=== PATIENT | female | born 1965 | race African-American/Black ===

== ENCOUNTER 2017-02-27 11:34 | Emergency (ER) | payer MEDICAID ==
[~2017-02-27] VITALS: Ht 167.6 cm; Wt 160.0 kg
[~2017-02-27 11:34] MED LIST: ASPI325T2; OMEP20CA10 PO
[2017-02-27] MEDS ORDERED: MORPHINE SULFATE 4 MG/ML CPJ (NOT FOR IM USE) IV STA (13:37)
[2017-02-27] MEDS ORDERED: ASPIRIN 81MG TABLET PO STA (13:37)
[2017-02-27] MEDS ORDERED: NITROGLYCERIN OINT 1GM/INCH UDPKT TD STA (13:37)
[2017-02-27 15:31] LABS: BASOPHILS % 1.1 % (0.0-2.0); EOSINOPHILS % 4.6 % (0.0-5.0); HEMATOCRIT. 35.5 % (36.0-48.0); HEMOGLOBIN. 11.1 g/dL (12.0-16.0); LYMPHOCYTES % 38.1 % (20.0-50.0); MEAN CORPUSCULAR HGB CONC 31.4 g/dL (31.0-37.0); MEAN CORPUSCULAR VOLUME 73.1 fL (81.0-99.0); MEAN PLATELET VOLUME 10.4 fl (7.4-10.4); MONOCYTES % 10.2 % (2.0-8.0); PLATELET 245 x1000/uL (130-400); RED BLOOD CELL COUNT 4.85 mill/uL (4.2-5.4); RED CELL DISTRIBUTION WIDTH 23.3 % (11.6-14.6); WHITE BLOOD COUNT 7.7 x1000/uL (4.5-11.0)
[2017-02-27 15:34] LABS: ADD RBC MORPHOLOGY YES; DIFFERENTIAL COMMENT 1
[2017-02-27 15:38] LABS: CHLORIDE 109 mEq/L (98-107); INDEX HEMOLYSI 1 (1-3); INDEX ICTERIC 1 (1-4); INDEX LIPEMIC 1 (1-3)
[2017-02-27 15:39] LABS: PARTIAL THROMBOPLASTIN TIME 25.3 sec (24.0-34.0); PROTHROMBIN TIME 10.5 sec
[2017-02-27 15:41] LABS: ALBUMIN 3.5 g/dL (3.4-5.0); ANION GAP 11; CALCIUM 8.9 mg/dL (8.5-10.1); CARBON DIOXIDE 26 mEq/L (21-32); LIPASE 124 IU/L (73-393); UREA NITROGEN BLOOD 10 mg/dL (7-21)
[2017-02-27 15:43] LABS: ALANINE AMINOTRANSFERASE 22 IU/L (13-61); eGFR > 60 mL/min (>60)
[2017-02-27 15:47] LABS: TROPONIN I < 0.02 ng/mL (0.00-0.04)
[2017-02-27 15:50] LABS: GIANT PLATELETS FEW; HYPOCHROMASIA 1+; PLATELET ESTIMATE NORMAL
[2017-02-27 15:51] LABS: ANISOCYTOSIS 1+
[2017-02-27 17:43] VITALS: BP 131/51
== END 2017-02-27 17:48 | disposition home or self-care (01) ==
LOC: ER 15:03
DX: R07.89 Other chest pain (principal); J44.9 Chronic obstructive pulmonary disease, unspecified; I10 Essential (primary) hypertension; Z79.82 Long term (current) use of aspirin; Z79.899 Other long term (current) drug therapy
CPT/HCPCS: 36415; 71010; 80053; 83690; 84484; 85025; 85610; 85730; 93005; 99285; J2270; Z7610

== ENCOUNTER 2017-05-16 06:47 | Emergency (ER) | payer MEDICAID ==
[~2017-05-16] VITALS: Ht 167.6 cm; Wt 150.0 kg
[~2017-05-16 06:47] MED LIST changes: +ASPI-986; -ASPI325T2
[2017-05-16] MEDS ORDERED: ASPIRIN 81MG TABLET PO STA (08:07)
[2017-05-16] MEDS ORDERED: NITROGLYCERIN 0.4MG TABLET SL SL PRN (08:15)
[2017-05-16 08:39] LABS: GLUCOSE URINE NEGATIVE (NEGATIVE); KETONES URINE NEGATIVE (NEGATIVE); LEUKOCYTE ESTERASE URINE 1+ (NEGATIVE); NITRITE URINE NEGATIVE (NEGATIVE); OCCULT BLOOD URINE NEGATIVE (NEGATIVE); PROTEIN URINE NEGATIVE (NEGATIVE); SPECIFIC GRAVITY URINE 1.019 (1.005-1.030); UROBILINOGEN URINE 0.2 E.U./dL (0.2-1.0)
[2017-05-16 08:51] LABS: CLARITY URINE CLOUDY (CLEAR); COLOR URINE YELLOW (YELLOW)
[2017-05-16 08:55] LABS: CARBON DIOXIDE 27 mEq/L (21-32); CHLORIDE 109 mEq/L (98-107); PARTIAL THROMBOPLASTIN TIME 27.3 sec (24.0-34.0); PROTHROMBIN TIME 10.6 sec
[2017-05-16 09:02] LABS: TROPONIN I < 0.02 ng/mL (0.00-0.04)
[2017-05-16 09:05] LABS: EOSINOPHILS % 5.4 % (0.0-5.0); HEMATOCRIT. 32.2 % (36.0-48.0); MEAN CORPUSCULAR HEMOGLOBIN 21.9 pg (28.0-32.0); MEAN CORPUSCULAR VOLUME 70.5 fL (81.0-99.0); MEAN PLATELET VOLUME 10.4 fl (7.4-10.4); MONOCYTES % 9.9 % (2.0-8.0); NEUTROPHILS % 47.7 % (40.0-76.0); PLATELET 244 x1000/uL (130-400); RED BLOOD CELL COUNT 4.57 mill/uL (4.2-5.4); RED CELL DISTRIBUTION WIDTH 18.5 % (11.6-14.6)
[2017-05-16 11:59] VITALS: BP 131/77
== END 2017-05-16 12:16 | disposition home or self-care (01) ==
LOC: ER 07:51
DX: K21.9 Gastro-esophageal reflux disease without esophagitis (principal)
CPT/HCPCS: 36415; 71010; 80053; 81001; 83690; 84484; 85025; 85610; 85730; 93005; 99285

== ENCOUNTER 2017-07-22 12:57 | Inpatient (IN) | payer MEDICAID ==
[~2017-07-22] VITALS: Ht 170.2 cm; Wt 136.1 kg
[~2017-07-22 12:57] MED LIST changes: -ASPI-986; +ASPI-986 PO
[2017-07-22 14:18] LABS: BASOPHILS % 0.6 % (0.0-2.0); EOSINOPHILS % 4.6 % (0.0-5.0); HEMATOCRIT. 30.5 % (36.0-48.0); HEMOGLOBIN. 9.5 g/dL (12.0-16.0); LYMPHOCYTES % 33.4 % (20.0-50.0); MEAN CORPUSCULAR HEMOGLOBIN 20.6 pg (28.0-32.0); MEAN CORPUSCULAR VOLUME 66.2 fL (81.0-99.0); MEAN PLATELET VOLUME 9.4 fl (7.4-10.4); MONOCYTES % 10.3 % (2.0-8.0); NEUTROPHILS % 51.1 % (40.0-76.0); PLATELET 261 x1000/uL (130-400); RED BLOOD CELL COUNT 4.61 mill/uL (4.2-5.4); RED CELL DISTRIBUTION WIDTH 20.3 % (11.6-14.6)
[2017-07-22 14:26] LABS: PROTHROMBIN TIME 10.7 sec (9.4-11.6)
[2017-07-22 14:32] LABS: CARBON DIOXIDE 27 mEq/L (21-32); CHLORIDE 108 mEq/L (98-107); ETHANOL BLOOD < 10 mg/dL
[2017-07-22 14:35] LABS: TROPONIN I < 0.02 ng/mL (0.00-0.04)
[2017-07-22 14:45] LABS: PLATELET ESTIMATE NORMAL
[2017-07-22 15:18] LABS: *AMPHETAMINES SCREEN URINE NEGATIVE (NEGATIVE); *BARBITURATES SCREEN URINE NEGATIVE (NEGATIVE); *BENZODIAZEPINES SCREEN URINE NEGATIVE (NEGATIVE); *COCAINE SCREEN URINE NEGATIVE (NEGATIVE); CANNABINOID URINE SCREEN NEGATIVE (NEGATIVE); METHADONE URINE SCREEN NEGATIVE (NEGATIVE); OPIATES URINE SCREEN NEGATIVE (NEGATIVE); PHENCYCLIDINE URINE SCREEN NEGATIVE (NEGATIVE)
[2017-07-22] MEDS ORDERED: IPRATROPIUM/ALBUTEROL 0.5-3(2.5)MG/3ML NEB INH PRN (17:15)
[2017-07-22] MEDS ORDERED: ONDANSETRON HCL 4MG/2ML VIAL IV PRN (17:15)
[2017-07-22] MEDS ORDERED: CLONIDINE 0.1MG TABLET PO PRN (17:15)
[2017-07-22] MEDS ORDERED: ACETAMINOPHEN 325MG TABLET PO PRN (17:15)
[2017-07-22] MEDS ORDERED: DOCUSATE SODIUM 100MG CAPSULE PO PRN (17:15)
[2017-07-22] MEDS ORDERED: MAGNESIUM/ALUMINUM HYDROXIDE/SIMETHICONE 30ML UDC PO PRN (17:15)
[2017-07-22 18:09] LABS: CHLORIDE 108 mEq/L (98-107)
[2017-07-22 18:11] LABS: CARBON DIOXIDE 25 mEq/L (21-32)
[2017-07-22 21:20] VITALS: BP 151/41
[2017-07-22] MEDS: HYDROCODONE/ACETAMINOPHEN 5/325MG TABLET PO PRN (23:06)
[2017-07-23] VITALS: BP 154/82
[2017-07-23 00:04] LABS: CREATINE KINASE 306 IU/L (26-192); CREATINE KINASE MB FRACTION 1.7 ng/mL (0.5-3.6)
[2017-07-23 00:14] LABS: TROPONIN I < 0.02 ng/mL (0.00-0.04)
[2017-07-23] MEDS ORDERED: FAMO40TA7 PO (00:25)
[2017-07-23] MEDS ORDERED: FERR325T6 PO (00:25)
[2017-07-23 04:00] VITALS: BP 155/77
[2017-07-23] MEDS: HYDROCODONE/ACETAMINOPHEN 5/325MG TABLET PO PRN ×2 (06:26→16:52)
[2017-07-23 08:00] VITALS: BP 139/82
[2017-07-23] MEDS: ASPIRIN 81MG EC TABLET PO SCH (09:12)
[2017-07-23 10:43] LABS: CREATINE KINASE 260 IU/L (26-192); CREATINE KINASE MB FRACTION 1.5 ng/mL (0.5-3.6)
[2017-07-23 10:49] LABS: TROPONIN I < 0.01 ng/mL (0.00-0.04)
[2017-07-23 12:00] VITALS: BP 153/70
[2017-07-23 16:00] VITALS: BP 150/71
[2017-07-23 16:12] LABS: CLARITY URINE TURBID (CLEAR); COLOR URINE YELLOW (YELLOW); GLUCOSE URINE NEGATIVE (NEGATIVE); KETONES URINE NEGATIVE (NEGATIVE); LEUKOCYTE ESTERASE URINE NEGATIVE (NEGATIVE); NITRITE URINE POSITIVE (NEGATIVE); OCCULT BLOOD URINE NEGATIVE (NEGATIVE); PROTEIN URINE NEGATIVE (NEGATIVE); SPECIFIC GRAVITY URINE 1.021 (1.005-1.030); UROBILINOGEN URINE 0.2 E.U./dL (0.2-1.0)
[2017-07-23 20:00] VITALS: BP 149/68
[2017-07-23] MEDS: ENOXAPARIN 40MG/0.4ML SYR SUBCUT SCH (21:39)
[2017-07-23] MEDS ORDERED: ENOXAPARIN 30MG/0.3ML SYR SUBCUT SCH (23:00)
[2017-07-24] VITALS: BP 118/46
[2017-07-24 04:00] VITALS: BP 149/81
[2017-07-24 06:49] LABS: BASOPHILS % 0.8 % (0.0-2.0); EOSINOPHILS % 5.2 % (0.0-5.0); HEMATOCRIT. 27.6 % (36.0-48.0); HEMOGLOBIN. 8.6 g/dL (12.0-16.0); LYMPHOCYTES % 31.6 % (20.0-50.0); MEAN CORPUSCULAR HEMOGLOBIN 20.8 pg (28.0-32.0); MEAN CORPUSCULAR VOLUME 66.6 fL (81.0-99.0); MEAN PLATELET VOLUME 10.2 fl (7.4-10.4); MONOCYTES % 10.4 % (2.0-8.0); PLATELET 251 x1000/uL (130-400); RED BLOOD CELL COUNT 4.15 mill/uL (4.2-5.4)
[2017-07-24 07:32] LABS: CARBON DIOXIDE 26 mEq/L (21-32); CHLORIDE 106 mEq/L (98-107)
[2017-07-24 07:34] LABS: TROPONIN I < 0.04 ng/mL (0.00-0.04)
[2017-07-24 08:00] VITALS: BP 156/81
[2017-07-24] MEDS: ENOXAPARIN 40MG/0.4ML SYR SUBCUT SCH (08:37)
[2017-07-24] MEDS: ASPIRIN 81MG EC TABLET PO SCH (08:37)
[2017-07-24] MEDS ORDERED: AMLODIPINE 2.5MG TABLET PO SCH (09:00)
[2017-07-24] MEDS ORDERED: FERR325T6 PO (11:31)
[2017-07-24] MEDS ORDERED: AMLO2.5T45 PO (11:31)
[2017-07-24] MEDS ORDERED: ASPI-1158 PO (11:31)
[2017-07-24 14:05] VITALS: BP 130/78
== END 2017-07-24 14:30 | disposition home or self-care (01) | DRG 816 ==
LOC: ER 13:24 → 8WST 16:46 → EDBEDREQTM 16:52 → EDBEDREQ 16:52 → ENRESERV 17:24
PROVIDERS: ADMIT Internal Medicine; ATTEND Internal Medicine
DX: T40.5X1A Poisoning by cocaine, accidental (unintentional), initial encounter (principal); I11.9 Hypertensive heart disease without heart failure; Z68.42 Body mass index [BMI] 45.0-49.9, adult; F14.19 Cocaine abuse with unspecified cocaine-induced disorder; R07.89 Other chest pain; R00.1 Bradycardia, unspecified; D64.9 Anemia, unspecified; I49.1 Atrial premature depolarization; E66.09 Other obesity due to excess calories; J32.9 Chronic sinusitis, unspecified; R20.0 Anesthesia of skin; F41.9 Anxiety disorder, unspecified; Z79.899 Other long term (current) drug therapy; Z79.82 Long term (current) use of aspirin
CPT/HCPCS: 36415; 70450; 71010; 80048; 80053; 80061; 80305; 81001; 82550; 82553; 83735; 83880; 84443; 84484; 85025; 85610; 93005; 93306; 93880; 97161; 97165; 99291; G0482; J1650